=== PATIENT | male | born 1935 | race Caucasian/White ===

== ENCOUNTER 2018-02-01 05:52 | Emergency (ER) | payer MEDICARE, BC ==
[~2018-02-01] VITALS: Ht 180.3 cm; Wt 97.5 kg
[~2018-02-01 05:52] MED LIST: ALPR.5; ASPI325EC PO; ATOR10; ATOR20 PO; CIPR500 PO; GLUCHON; HYDACE5 PO; MAGGLU250; MELO7.5; MELO7.5 PO; MULVITA PO; MULVITSO; OMEGA KRILL OIL PO; POTASSIUM GLUCONATE PO; PROACE100 PO; PROM25 PO; TAMS.4ER; UBID10 PO; VITAMIN D PO
[2018-02-01] MEDS ORDERED: TAMS.4ER PO (07:25)
== END 2018-02-01 07:43 | disposition home or self-care (01) ==
LOC: ER 05:52
DX: S51.012A Laceration without foreign body of left elbow, initial encounter (principal); Z88.8 Allergy status to other drugs, medicaments and biological substances; Z79.899 Other long term (current) drug therapy; Z79.82 Long term (current) use of aspirin; W19.XXXA Unspecified fall, initial encounter
CPT/HCPCS: 99282

== ENCOUNTER 2023-01-22 10:10 | Emergency (ER) | payer MEDICARE, BC ==
[~2023-01-22] VITALS: Ht 175.3 cm; Wt 87.1 kg
[~2023-01-22 10:10] MED LIST changes: +Colace100 MG PO; +TAMS.4ER PO
[2023-01-22 10:18] VITALS: BP 131/109
== END 2023-01-22 12:08 | disposition home or self-care (01) ==
LOC: ER 10:10
DX: S51.012A Laceration without foreign body of left elbow, initial encounter (principal); S80.11XA Contusion of right lower leg, initial encounter; Z88.8 Allergy status to other drugs, medicaments and biological substances; Z91.048 Other nonmedicinal substance allergy status; Z79.899 Other long term (current) drug therapy; Z79.82 Long term (current) use of aspirin; W18.30XA Fall on same level, unspecified, initial encounter; Y92.009 Unspecified place in unspecified non-institutional (private) residence as the place of occurrence of the external cause
CPT/HCPCS: 99282

== ENCOUNTER 2023-01-25 03:23 | Day surgery (SDC) | payer MEDICARE, BC | END 2023-01-25 22:37 | disposition home or self-care (01) | LOC: WOUND 03:23 | DX: S81.802A Unspecified open wound, left lower leg, initial encounter (principal); S81.812A Laceration without foreign body, left lower leg, initial encounter; W19.XXXA Unspecified fall, initial encounter; S51.812A Laceration without foreign body of left forearm, initial encounter; X58.XXXA Exposure to other specified factors, initial encounter; I87.313 Chronic venous hypertension (idiopathic) with ulcer of bilateral lower extremity; L97.829 Non-pressure chronic ulcer of other part of left lower leg with unspecified severity; L97.819 Non-pressure chronic ulcer of other part of right lower leg with unspecified severity; I87.2 Venous insufficiency (chronic) (peripheral); I48.91 Unspecified atrial fibrillation | CPT/HCPCS: A9270; G0463 ==

== ENCOUNTER 2023-01-28 08:49 | Day surgery (SDC) | payer MEDICARE, BC | END 2023-01-28 22:34 | disposition home or self-care (01) | LOC: WOUND 08:49 | DX: I87.313 Chronic venous hypertension (idiopathic) with ulcer of bilateral lower extremity (principal); L97.829 Non-pressure chronic ulcer of other part of left lower leg with unspecified severity; L97.819 Non-pressure chronic ulcer of other part of right lower leg with unspecified severity; S81.822S Laceration with foreign body, left lower leg, sequela; W19.XXXS Unspecified fall, sequela; S51.812S Laceration without foreign body of left forearm, sequela; X58.XXXS Exposure to other specified factors, sequela; I87.2 Venous insufficiency (chronic) (peripheral); I48.91 Unspecified atrial fibrillation | CPT/HCPCS: G0463 ==

== ENCOUNTER 2023-01-30 03:00 | Day surgery (SDC) | payer MEDICARE, BC | END 2023-01-30 22:37 | disposition home or self-care (01) | LOC: WOUND 03:00 | DX: Z48.00 Encounter for change or removal of nonsurgical wound dressing (principal) | CPT/HCPCS: A9270; G0463 ==

== ENCOUNTER 2023-02-01 01:54 | Day surgery (SDC) | payer MEDICARE, BC ==
[2023-02-01] MEDS ORDERED: Cleocin HCl300 MG PO (15:33)
== END 2023-02-01 22:56 | disposition home or self-care (01) ==
LOC: WOUND 01:54
DX: I87.311 Chronic venous hypertension (idiopathic) with ulcer of right lower extremity (principal); I87.312 Chronic venous hypertension (idiopathic) with ulcer of left lower extremity; L97.829 Non-pressure chronic ulcer of other part of left lower leg with unspecified severity; L97.819 Non-pressure chronic ulcer of other part of right lower leg with unspecified severity; S81.822S Laceration with foreign body, left lower leg, sequela
CPT/HCPCS: G0463

== ENCOUNTER 2023-02-04 02:01 | Day surgery (SDC) | payer MEDICARE, BC ==
[~2023-02-04 02:01] MED LIST changes: +Cleocin HCl300 MG PO
== END 2023-02-04 22:48 | disposition home or self-care (01) ==
LOC: WOUND 02:01
DX: L03.115 Cellulitis of right lower limb (principal); I87.313 Chronic venous hypertension (idiopathic) with ulcer of bilateral lower extremity; L97.812 Non-pressure chronic ulcer of other part of right lower leg with fat layer exposed; S81.812A Laceration without foreign body, left lower leg, initial encounter; L97.829 Non-pressure chronic ulcer of other part of left lower leg with unspecified severity; L97.819 Non-pressure chronic ulcer of other part of right lower leg with unspecified severity; I87.2 Venous insufficiency (chronic) (peripheral); X58.XXXA Exposure to other specified factors, initial encounter
CPT/HCPCS: A9270

== ENCOUNTER 2023-02-06 05:44 | Day surgery (SDC) | payer MEDICARE, BC | END 2023-02-06 22:56 | disposition home or self-care (01) | LOC: WOUND 05:44 | DX: I87.313 Chronic venous hypertension (idiopathic) with ulcer of bilateral lower extremity (principal); L97.829 Non-pressure chronic ulcer of other part of left lower leg with unspecified severity; L97.819 Non-pressure chronic ulcer of other part of right lower leg with unspecified severity; S81.822S Laceration with foreign body, left lower leg, sequela; S51.812S Laceration without foreign body of left forearm, sequela; I87.2 Venous insufficiency (chronic) (peripheral); X58.XXXS Exposure to other specified factors, sequela | CPT/HCPCS: A9270; G0463 ==

== ENCOUNTER 2023-02-08 00:27 | Day surgery (SDC) | payer MEDICARE, BC | END 2023-02-09 22:40 | disposition home or self-care (01) | LOC: WOUND 00:27 | DX: I87.313 Chronic venous hypertension (idiopathic) with ulcer of bilateral lower extremity (principal); L97.812 Non-pressure chronic ulcer of other part of right lower leg with fat layer exposed; L97.829 Non-pressure chronic ulcer of other part of left lower leg with unspecified severity; S81.822S Laceration with foreign body, left lower leg, sequela; S51.812S Laceration without foreign body of left forearm, sequela; I87.2 Venous insufficiency (chronic) (peripheral); X58.XXXS Exposure to other specified factors, sequela | CPT/HCPCS: A9270; G0463 ==

== ENCOUNTER 2023-02-11 09:20 | Day surgery (SDC) | payer MEDICARE, BC | END 2023-02-11 22:47 | disposition home or self-care (01) | LOC: WOUND 09:20 | DX: I87.311 Chronic venous hypertension (idiopathic) with ulcer of right lower extremity (principal); L02.415 Cutaneous abscess of right lower limb; I87.2 Venous insufficiency (chronic) (peripheral); L97.812 Non-pressure chronic ulcer of other part of right lower leg with fat layer exposed; L03.115 Cellulitis of right lower limb; I48.91 Unspecified atrial fibrillation ==

== ENCOUNTER 2023-02-13 00:26 | Day surgery (SDC) | payer MEDICARE, BC | END 2023-02-13 22:49 | disposition home or self-care (01) | LOC: WOUND 00:26 | DX: I87.313 Chronic venous hypertension (idiopathic) with ulcer of bilateral lower extremity (principal); L97.829 Non-pressure chronic ulcer of other part of left lower leg with unspecified severity; L97.819 Non-pressure chronic ulcer of other part of right lower leg with unspecified severity; S81.822S Laceration with foreign body, left lower leg, sequela; S51.812S Laceration without foreign body of left forearm, sequela; I87.2 Venous insufficiency (chronic) (peripheral) | CPT/HCPCS: A9270; G0463 ==

== ENCOUNTER 2023-02-15 01:04 | Day surgery (SDC) | payer MEDICARE, BC | END 2023-02-17 22:38 | disposition home or self-care (01) | LOC: WOUND 01:04 | DX: I87.313 Chronic venous hypertension (idiopathic) with ulcer of bilateral lower extremity (principal); L97.829 Non-pressure chronic ulcer of other part of left lower leg with unspecified severity; L97.819 Non-pressure chronic ulcer of other part of right lower leg with unspecified severity; S81.822S Laceration with foreign body, left lower leg, sequela; S51.812S Laceration without foreign body of left forearm, sequela; X58.XXXS Exposure to other specified factors, sequela; I87.2 Venous insufficiency (chronic) (peripheral) | CPT/HCPCS: A9270; G0463 ==

== ENCOUNTER 2023-02-18 01:22 | Day surgery (SDC) | payer MEDICARE, BC | END 2023-02-18 22:47 | disposition home or self-care (01) | LOC: WOUND 01:22 | DX: L03.115 Cellulitis of right lower limb (principal); I87.311 Chronic venous hypertension (idiopathic) with ulcer of right lower extremity; I87.312 Chronic venous hypertension (idiopathic) with ulcer of left lower extremity; L97.812 Non-pressure chronic ulcer of other part of right lower leg with fat layer exposed; S81.822D Laceration with foreign body, left lower leg, subsequent encounter; L97.829 Non-pressure chronic ulcer of other part of left lower leg with unspecified severity; L97.819 Non-pressure chronic ulcer of other part of right lower leg with unspecified severity; S51.812D Laceration without foreign body of left forearm, subsequent encounter; I87.2 Venous insufficiency (chronic) (peripheral); X58.XXXD Exposure to other specified factors, subsequent encounter | CPT/HCPCS: A9270 ==

== ENCOUNTER 2023-02-20 00:44 | Day surgery (SDC) | payer MEDICARE, BC | END 2023-02-20 22:39 | disposition home or self-care (01) | LOC: WOUND 00:44 | DX: I87.313 Chronic venous hypertension (idiopathic) with ulcer of bilateral lower extremity (principal); L97.829 Non-pressure chronic ulcer of other part of left lower leg with unspecified severity; L97.819 Non-pressure chronic ulcer of other part of right lower leg with unspecified severity; S81.822D Laceration with foreign body, left lower leg, subsequent encounter; S51.812D Laceration without foreign body of left forearm, subsequent encounter; I87.2 Venous insufficiency (chronic) (peripheral); X58.XXXD Exposure to other specified factors, subsequent encounter | CPT/HCPCS: G0463 ==

== ENCOUNTER 2023-02-27 03:49 | Day surgery (SDC) | payer MEDICARE, BC | END 2023-02-27 22:50 | disposition home or self-care (01) | LOC: WOUND 03:49 | DX: I87.313 Chronic venous hypertension (idiopathic) with ulcer of bilateral lower extremity (principal); L97.819 Non-pressure chronic ulcer of other part of right lower leg with unspecified severity; S81.822S Laceration with foreign body, left lower leg, sequela; S51.812S Laceration without foreign body of left forearm, sequela; X58.XXXS Exposure to other specified factors, sequela; I87.2 Venous insufficiency (chronic) (peripheral) | CPT/HCPCS: A9270; G0463 ==

== ENCOUNTER 2023-03-04 03:45 | Day surgery (SDC) | payer MEDICARE, BC | END 2023-03-04 22:50 | disposition home or self-care (01) | LOC: WOUND 03:45 | DX: I87.313 Chronic venous hypertension (idiopathic) with ulcer of bilateral lower extremity (principal); L97.829 Non-pressure chronic ulcer of other part of left lower leg with unspecified severity; L97.819 Non-pressure chronic ulcer of other part of right lower leg with unspecified severity; S81.822S Laceration with foreign body, left lower leg, sequela; S81.812S Laceration without foreign body, left lower leg, sequela; I87.2 Venous insufficiency (chronic) (peripheral) | CPT/HCPCS: G0463 ==

== ENCOUNTER 2023-03-06 03:10 | Day surgery (SDC) | payer MEDICARE, BC | END 2023-03-06 22:44 | disposition home or self-care (01) | LOC: WOUND 03:10 | DX: L03.115 Cellulitis of right lower limb (principal); I87.2 Venous insufficiency (chronic) (peripheral); L97.812 Non-pressure chronic ulcer of other part of right lower leg with fat layer exposed; L02.415 Cutaneous abscess of right lower limb; I48.91 Unspecified atrial fibrillation; I87.313 Chronic venous hypertension (idiopathic) with ulcer of bilateral lower extremity; L97.829 Non-pressure chronic ulcer of other part of left lower leg with unspecified severity; S81.822S Laceration with foreign body, left lower leg, sequela; S51.812S Laceration without foreign body of left forearm, sequela | CPT/HCPCS: A9270; G0463 ==

== ENCOUNTER 2023-03-08 03:20 | Day surgery (SDC) | payer MEDICARE, BC | END 2023-03-08 22:50 | disposition home or self-care (01) | LOC: WOUND 03:20 | DX: I87.313 Chronic venous hypertension (idiopathic) with ulcer of bilateral lower extremity (principal); L97.819 Non-pressure chronic ulcer of other part of right lower leg with unspecified severity; L97.829 Non-pressure chronic ulcer of other part of left lower leg with unspecified severity; S81.822S Laceration with foreign body, left lower leg, sequela; S51.812S Laceration without foreign body of left forearm, sequela; I87.2 Venous insufficiency (chronic) (peripheral) | CPT/HCPCS: G0463 ==

== ENCOUNTER 2023-03-11 03:10 | Day surgery (SDC) | payer MEDICARE, BC | END 2023-03-11 23:00 | disposition home or self-care (01) | LOC: WOUND 03:10 | DX: L03.115 Cellulitis of right lower limb (principal); I87.311 Chronic venous hypertension (idiopathic) with ulcer of right lower extremity; I87.312 Chronic venous hypertension (idiopathic) with ulcer of left lower extremity; L97.812 Non-pressure chronic ulcer of other part of right lower leg with fat layer exposed; L97.829 Non-pressure chronic ulcer of other part of left lower leg with unspecified severity; L97.819 Non-pressure chronic ulcer of other part of right lower leg with unspecified severity; S81.822D Laceration with foreign body, left lower leg, subsequent encounter; S51.812D Laceration without foreign body of left forearm, subsequent encounter; I87.2 Venous insufficiency (chronic) (peripheral); X58.XXXD Exposure to other specified factors, subsequent encounter | CPT/HCPCS: A9270; G0463 ==

== ENCOUNTER 2023-03-13 03:07 | Day surgery (SDC) | payer MEDICARE, BC | END 2023-03-13 22:50 | disposition home or self-care (01) | LOC: WOUND 03:07 | DX: I87.313 Chronic venous hypertension (idiopathic) with ulcer of bilateral lower extremity (principal); L97.829 Non-pressure chronic ulcer of other part of left lower leg with unspecified severity; L97.819 Non-pressure chronic ulcer of other part of right lower leg with unspecified severity; S81.822S Laceration with foreign body, left lower leg, sequela; S51.812S Laceration without foreign body of left forearm, sequela; I87.2 Venous insufficiency (chronic) (peripheral) | CPT/HCPCS: G0463 ==

== ENCOUNTER 2023-03-15 01:05 | Day surgery (SDC) | payer MEDICARE, BC | END 2023-03-15 22:50 | disposition home or self-care (01) | LOC: WOUND 01:05 | DX: I87.313 Chronic venous hypertension (idiopathic) with ulcer of bilateral lower extremity (principal); L97.829 Non-pressure chronic ulcer of other part of left lower leg with unspecified severity; L97.819 Non-pressure chronic ulcer of other part of right lower leg with unspecified severity; I87.2 Venous insufficiency (chronic) (peripheral) | CPT/HCPCS: G0463 ==

== ENCOUNTER 2023-03-20 02:38 | Day surgery (SDC) | payer MEDICARE, BC | END 2023-03-20 22:43 | disposition home or self-care (01) | LOC: WOUND 02:38 | DX: L03.115 Cellulitis of right lower limb (principal); I87.313 Chronic venous hypertension (idiopathic) with ulcer of bilateral lower extremity; L97.812 Non-pressure chronic ulcer of other part of right lower leg with fat layer exposed; L97.829 Non-pressure chronic ulcer of other part of left lower leg with unspecified severity; L97.819 Non-pressure chronic ulcer of other part of right lower leg with unspecified severity; I87.2 Venous insufficiency (chronic) (peripheral) | CPT/HCPCS: G0463 ==

== ENCOUNTER 2023-04-03 04:26 | Day surgery (SDC) | payer MEDICARE, BC | END 2023-04-03 22:41 | disposition home or self-care (01) | LOC: WOUND 04:26 | DX: I87.313 Chronic venous hypertension (idiopathic) with ulcer of bilateral lower extremity (principal); L97.829 Non-pressure chronic ulcer of other part of left lower leg with unspecified severity; L97.819 Non-pressure chronic ulcer of other part of right lower leg with unspecified severity; S81.822D Laceration with foreign body, left lower leg, subsequent encounter; S81.812D Laceration without foreign body, left lower leg, subsequent encounter; I87.2 Venous insufficiency (chronic) (peripheral); X58.XXXD Exposure to other specified factors, subsequent encounter | CPT/HCPCS: G0463 ==

== ENCOUNTER 2023-04-05 00:55 | Day surgery (SDC) | payer MEDICARE, BC | END 2023-04-05 22:37 | disposition home or self-care (01) | LOC: WOUND 00:55 | DX: I87.313 Chronic venous hypertension (idiopathic) with ulcer of bilateral lower extremity (principal); L97.829 Non-pressure chronic ulcer of other part of left lower leg with unspecified severity; L97.819 Non-pressure chronic ulcer of other part of right lower leg with unspecified severity; S81.822S Laceration with foreign body, left lower leg, sequela; S51.812S Laceration without foreign body of left forearm, sequela; I87.2 Venous insufficiency (chronic) (peripheral) | CPT/HCPCS: G0463 ==

== ENCOUNTER 2023-04-08 00:41 | Day surgery (SDC) | payer MEDICARE, BC | END 2023-04-08 22:46 | disposition home or self-care (01) | LOC: WOUND 00:41 | DX: I87.312 Chronic venous hypertension (idiopathic) with ulcer of left lower extremity (principal); L97.829 Non-pressure chronic ulcer of other part of left lower leg with unspecified severity; S81.822S Laceration with foreign body, left lower leg, sequela; S51.812S Laceration without foreign body of left forearm, sequela; I87.2 Venous insufficiency (chronic) (peripheral) | CPT/HCPCS: G0463 ==

== ENCOUNTER 2023-04-24 01:14 | Day surgery (SDC) | payer MEDICARE, BC | END 2023-04-24 23:11 | disposition home or self-care (01) | LOC: WOUND 01:14 | DX: I87.311 Chronic venous hypertension (idiopathic) with ulcer of right lower extremity (principal) | CPT/HCPCS: G0463 ==

== ENCOUNTER 2023-04-26 03:03 | Day surgery (SDC) | payer MEDICARE, BC | END 2023-04-26 22:44 | disposition home or self-care (01) | LOC: WOUND 03:03 | DX: I87.311 Chronic venous hypertension (idiopathic) with ulcer of right lower extremity (principal) | CPT/HCPCS: G0463 ==

== ENCOUNTER 2023-04-29 02:13 | Day surgery (SDC) | payer MEDICARE, BC | END 2023-04-29 22:47 | disposition home or self-care (01) | LOC: WOUND 02:13 | DX: I87.311 Chronic venous hypertension (idiopathic) with ulcer of right lower extremity (principal); L97.812 Non-pressure chronic ulcer of other part of right lower leg with fat layer exposed; I87.2 Venous insufficiency (chronic) (peripheral); I48.91 Unspecified atrial fibrillation | CPT/HCPCS: A9270; G0463 ==

== ENCOUNTER 2023-05-01 01:54 | Day surgery (SDC) | payer MEDICARE, BC | END 2023-05-01 22:36 | disposition home or self-care (01) | LOC: WOUND 01:54 | DX: I87.311 Chronic venous hypertension (idiopathic) with ulcer of right lower extremity (principal); I87.2 Venous insufficiency (chronic) (peripheral) | CPT/HCPCS: G0463 ==

== ENCOUNTER 2023-05-03 01:28 | Day surgery (SDC) | payer MEDICARE, BC | END 2023-05-03 22:54 | disposition home or self-care (01) | LOC: WOUND 01:28 | DX: I87.311 Chronic venous hypertension (idiopathic) with ulcer of right lower extremity (principal); I87.2 Venous insufficiency (chronic) (peripheral) | CPT/HCPCS: G0463 ==

== ENCOUNTER 2023-05-06 01:58 | Day surgery (SDC) | payer MEDICARE, BC | END 2023-05-06 22:37 | disposition home or self-care (01) | LOC: WOUND 01:58 | DX: I87.311 Chronic venous hypertension (idiopathic) with ulcer of right lower extremity (principal); I87.2 Venous insufficiency (chronic) (peripheral) | CPT/HCPCS: G0463 ==

== ENCOUNTER 2023-05-09 08:00 | Day surgery (SDC) | payer MEDICARE, BC | END 2023-05-09 23:59 | disposition home or self-care (01) | LOC: WOUND 08:00 | DX: I87.311 Chronic venous hypertension (idiopathic) with ulcer of right lower extremity (principal) | CPT/HCPCS: G0463 ==

== ENCOUNTER 2023-05-20 08:00 | Day surgery (SDC) | payer MEDICARE, BC | END 2023-05-20 23:59 | disposition home or self-care (01) | LOC: WOUND 08:00 | DX: I87.311 Chronic venous hypertension (idiopathic) with ulcer of right lower extremity (principal); S51.801A Unspecified open wound of right forearm, initial encounter; L97.922 Non-pressure chronic ulcer of unspecified part of left lower leg with fat layer exposed; I48.91 Unspecified atrial fibrillation; X58.XXXA Exposure to other specified factors, initial encounter ==

== ENCOUNTER 2023-05-27 01:32 | Day surgery (SDC) | payer MEDICARE, BC | END 2023-05-27 22:51 | disposition home or self-care (01) | LOC: WOUND 01:32 | DX: I87.311 Chronic venous hypertension (idiopathic) with ulcer of right lower extremity (principal); L97.812 Non-pressure chronic ulcer of other part of right lower leg with fat layer exposed; S41.111D Laceration without foreign body of right upper arm, subsequent encounter; X58.XXXD Exposure to other specified factors, subsequent encounter; I87.2 Venous insufficiency (chronic) (peripheral) | CPT/HCPCS: G0463 ==

== ENCOUNTER 2023-06-10 01:10 | Day surgery (SDC) | payer MEDICARE, BC | END 2023-06-10 22:46 | disposition home or self-care (01) | LOC: WOUND 01:10 | DX: S80.212A Abrasion, left knee, initial encounter (principal); S80.811A Abrasion, right lower leg, initial encounter; X58.XXXA Exposure to other specified factors, initial encounter; I87.2 Venous insufficiency (chronic) (peripheral); I87.311 Chronic venous hypertension (idiopathic) with ulcer of right lower extremity; I48.91 Unspecified atrial fibrillation | CPT/HCPCS: A9270; G0463 ==

== ENCOUNTER 2023-06-14 00:50 | Day surgery (SDC) | payer MEDICARE, BC | END 2023-06-14 23:10 | disposition home or self-care (01) | LOC: WOUND 00:50 | DX: I87.311 Chronic venous hypertension (idiopathic) with ulcer of right lower extremity (principal); L97.212 Non-pressure chronic ulcer of right calf with fat layer exposed; L97.222 Non-pressure chronic ulcer of left calf with fat layer exposed | CPT/HCPCS: G0463 ==

== ENCOUNTER 2023-06-17 01:58 | Day surgery (SDC) | payer MEDICARE, BC | END 2023-06-17 22:56 | disposition home or self-care (01) | LOC: WOUND 01:58 | DX: S80.212D Abrasion, left knee, subsequent encounter (principal); I48.91 Unspecified atrial fibrillation | CPT/HCPCS: G0463 ==

== ENCOUNTER 2023-06-19 04:45 | Day surgery (SDC) | payer MEDICARE, BC | END 2023-06-19 22:44 | disposition home or self-care (01) | LOC: WOUND 04:45 | DX: I87.311 Chronic venous hypertension (idiopathic) with ulcer of right lower extremity (principal); I87.2 Venous insufficiency (chronic) (peripheral); S41.111D Laceration without foreign body of right upper arm, subsequent encounter | CPT/HCPCS: G0463 ==

== ENCOUNTER 2023-06-21 03:17 | Day surgery (SDC) | payer MEDICARE, BC | END 2023-06-21 22:36 | disposition home or self-care (01) | LOC: WOUND 03:17 | DX: I87.311 Chronic venous hypertension (idiopathic) with ulcer of right lower extremity (principal); I87.2 Venous insufficiency (chronic) (peripheral); S41.111D Laceration without foreign body of right upper arm, subsequent encounter | CPT/HCPCS: G0463 ==

== ENCOUNTER 2023-07-03 02:25 | Day surgery (SDC) | payer MEDICARE, BC | END 2023-07-03 23:36 | disposition home or self-care (01) | LOC: WOUND 02:25 | DX: I87.311 Chronic venous hypertension (idiopathic) with ulcer of right lower extremity (principal); S41.111D Laceration without foreign body of right upper arm, subsequent encounter; X58.XXXD Exposure to other specified factors, subsequent encounter | CPT/HCPCS: G0463 ==

== ENCOUNTER 2023-07-05 00:33 | Day surgery (SDC) | payer MEDICARE, BC | END 2023-07-05 22:45 | disposition home or self-care (01) | LOC: WOUND 00:33 | DX: I87.311 Chronic venous hypertension (idiopathic) with ulcer of right lower extremity (principal); I87.2 Venous insufficiency (chronic) (peripheral); S41.111D Laceration without foreign body of right upper arm, subsequent encounter | CPT/HCPCS: G0463 ==

== ENCOUNTER 2023-07-08 00:54 | Day surgery (SDC) | payer MEDICARE, BC | END 2023-07-08 23:07 | disposition home or self-care (01) | LOC: WOUND 00:54 | DX: I87.311 Chronic venous hypertension (idiopathic) with ulcer of right lower extremity (principal); S41.111D Laceration without foreign body of right upper arm, subsequent encounter; X58.XXXD Exposure to other specified factors, subsequent encounter | CPT/HCPCS: G0463 ==

== ENCOUNTER 2023-07-11 01:31 | Day surgery (SDC) | payer MEDICARE, BC | END 2023-07-11 23:30 | disposition home or self-care (01) | LOC: WOUND 01:31 | DX: I87.311 Chronic venous hypertension (idiopathic) with ulcer of right lower extremity (principal); L97.812 Non-pressure chronic ulcer of other part of right lower leg with fat layer exposed; L89.890 Pressure ulcer of other site, unstageable; S81.812A Laceration without foreign body, left lower leg, initial encounter; S51.812A Laceration without foreign body of left forearm, initial encounter; S41.111A Laceration without foreign body of right upper arm, initial encounter; S91.301A Unspecified open wound, right foot, initial encounter; W19.XXXA Unspecified fall, initial encounter; W22.8XXA Striking against or struck by other objects, initial encounter; I87.2 Venous insufficiency (chronic) (peripheral); I48.91 Unspecified atrial fibrillation | CPT/HCPCS: A9270; G0463 ==

== ENCOUNTER 2023-07-15 01:58 | Day surgery (SDC) | payer MEDICARE, BC | END 2023-07-15 22:49 | disposition home or self-care (01) | LOC: WOUND 01:58 | DX: I87.311 Chronic venous hypertension (idiopathic) with ulcer of right lower extremity (principal); S51.802D Unspecified open wound of left forearm, subsequent encounter; L89.893 Pressure ulcer of other site, stage 3; S81.002D Unspecified open wound, left knee, subsequent encounter; X58.XXXD Exposure to other specified factors, subsequent encounter | CPT/HCPCS: 73630 ==

== ENCOUNTER 2023-07-17 05:13 | Day surgery (SDC) | payer MEDICARE, BC | END 2023-07-17 22:48 | disposition home or self-care (01) | LOC: WOUND 05:13 | DX: I87.311 Chronic venous hypertension (idiopathic) with ulcer of right lower extremity (principal); S41.111D Laceration without foreign body of right upper arm, subsequent encounter; S91.301D Unspecified open wound, right foot, subsequent encounter; X58.XXXD Exposure to other specified factors, subsequent encounter | CPT/HCPCS: G0463 ==

== ENCOUNTER 2023-07-19 05:07 | Day surgery (SDC) | payer MEDICARE, BC | END 2023-07-19 22:38 | disposition home or self-care (01) | LOC: WOUND 05:07 | DX: I87.311 Chronic venous hypertension (idiopathic) with ulcer of right lower extremity (principal); I87.2 Venous insufficiency (chronic) (peripheral); L02.611 Cutaneous abscess of right foot; S41.111A Laceration without foreign body of right upper arm, initial encounter; S80.212S Abrasion, left knee, sequela; S91.301A Unspecified open wound, right foot, initial encounter | CPT/HCPCS: G0463 ==

== ENCOUNTER 2023-07-22 02:56 | Day surgery (SDC) | payer MEDICARE, BC | END 2023-07-23 22:55 | disposition home or self-care (01) | LOC: WOUND 02:56 | DX: S81.002A Unspecified open wound, left knee, initial encounter (principal); W19.XXXA Unspecified fall, initial encounter; L89.893 Pressure ulcer of other site, stage 3; I87.311 Chronic venous hypertension (idiopathic) with ulcer of right lower extremity; S41.111A Laceration without foreign body of right upper arm, initial encounter; S91.301A Unspecified open wound, right foot, initial encounter; W22.8XXA Striking against or struck by other objects, initial encounter; I87.2 Venous insufficiency (chronic) (peripheral); I48.91 Unspecified atrial fibrillation | CPT/HCPCS: G0463 ==

== ENCOUNTER 2023-07-24 02:27 | Day surgery (SDC) | payer MEDICARE, BC | END 2023-07-24 22:43 | disposition home or self-care (01) | LOC: WOUND 02:27 | DX: I87.311 Chronic venous hypertension (idiopathic) with ulcer of right lower extremity (principal); S41.111D Laceration without foreign body of right upper arm, subsequent encounter; X58.XXXD Exposure to other specified factors, subsequent encounter | CPT/HCPCS: G0463 ==

== ENCOUNTER 2023-07-26 03:06 | Day surgery (SDC) | payer MEDICARE, BC | END 2023-07-26 23:02 | disposition home or self-care (01) | LOC: WOUND 03:06 | DX: I87.311 Chronic venous hypertension (idiopathic) with ulcer of right lower extremity (principal); I87.2 Venous insufficiency (chronic) (peripheral); S41.111D Laceration without foreign body of right upper arm, subsequent encounter; S91.301D Unspecified open wound, right foot, subsequent encounter | CPT/HCPCS: 87070; 87075; 87077; 87205; G0463 ==

== ENCOUNTER 2023-07-29 02:17 | Day surgery (SDC) | payer MEDICARE, BC | END 2023-07-29 22:43 | disposition home or self-care (01) | LOC: WOUND 02:17 | DX: I87.311 Chronic venous hypertension (idiopathic) with ulcer of right lower extremity (principal); L89.893 Pressure ulcer of other site, stage 3; I48.91 Unspecified atrial fibrillation ==

== ENCOUNTER 2023-07-31 04:48 | Day surgery (SDC) | payer MEDICARE, BC | END 2023-07-31 23:12 | disposition home or self-care (01) | LOC: WOUND 04:48 | DX: I87.311 Chronic venous hypertension (idiopathic) with ulcer of right lower extremity (principal); S41.111A Laceration without foreign body of right upper arm, initial encounter; S91.301A Unspecified open wound, right foot, initial encounter; X58.XXXA Exposure to other specified factors, initial encounter; I87.1 Compression of vein | CPT/HCPCS: G0463 ==

== ENCOUNTER 2023-08-02 05:08 | Day surgery (SDC) | payer MEDICARE, BC | END 2023-08-02 22:49 | disposition home or self-care (01) | LOC: WOUND 05:08 | DX: I87.311 Chronic venous hypertension (idiopathic) with ulcer of right lower extremity (principal); I87.2 Venous insufficiency (chronic) (peripheral); S41.111D Laceration without foreign body of right upper arm, subsequent encounter; S91.301D Unspecified open wound, right foot, subsequent encounter | CPT/HCPCS: G0463 ==

== ENCOUNTER 2023-08-05 02:35 | Day surgery (SDC) | payer MEDICARE, BC | END 2023-08-05 22:39 | disposition home or self-care (01) | LOC: WOUND 02:35 | DX: I87.311 Chronic venous hypertension (idiopathic) with ulcer of right lower extremity (principal); I87.2 Venous insufficiency (chronic) (peripheral); S41.111D Laceration without foreign body of right upper arm, subsequent encounter; S91.301D Unspecified open wound, right foot, subsequent encounter | CPT/HCPCS: G0463 ==

== ENCOUNTER 2023-08-07 02:02 | Day surgery (SDC) | payer MEDICARE, BC | END 2023-08-07 22:48 | disposition home or self-care (01) | LOC: WOUND 02:02 | DX: I87.311 Chronic venous hypertension (idiopathic) with ulcer of right lower extremity (principal); S41.111D Laceration without foreign body of right upper arm, subsequent encounter; X58.XXXD Exposure to other specified factors, subsequent encounter | CPT/HCPCS: G0463 ==

== ENCOUNTER 2023-08-09 01:56 | Day surgery (SDC) | payer MEDICARE, BC | END 2023-08-09 22:45 | disposition home or self-care (01) | LOC: WOUND 01:56 | DX: I87.311 Chronic venous hypertension (idiopathic) with ulcer of right lower extremity (principal); S41.111D Laceration without foreign body of right upper arm, subsequent encounter; X58.XXXD Exposure to other specified factors, subsequent encounter | CPT/HCPCS: G0463 ==

== ENCOUNTER 2023-08-12 00:47 | Day surgery (SDC) | payer MEDICARE, BC | END 2023-08-12 22:43 | disposition home or self-care (01) | LOC: WOUND 00:47 | DX: L89.893 Pressure ulcer of other site, stage 3 (principal); I87.311 Chronic venous hypertension (idiopathic) with ulcer of right lower extremity; I87.2 Venous insufficiency (chronic) (peripheral); S41.111A Laceration without foreign body of right upper arm, initial encounter; S91.301A Unspecified open wound, right foot, initial encounter; X58.XXXA Exposure to other specified factors, initial encounter | CPT/HCPCS: A9270; G0463 ==

== ENCOUNTER 2023-08-14 06:14 | Day surgery (SDC) | payer MEDICARE, BC | END 2023-08-14 22:55 | disposition home or self-care (01) | LOC: WOUND 06:14 | DX: I87.311 Chronic venous hypertension (idiopathic) with ulcer of right lower extremity (principal); S41.111D Laceration without foreign body of right upper arm, subsequent encounter; X58.XXXD Exposure to other specified factors, subsequent encounter | CPT/HCPCS: G0463 ==

== ENCOUNTER 2023-08-16 02:34 | Day surgery (SDC) | payer MEDICARE, BC | END 2023-08-16 22:35 | disposition home or self-care (01) | LOC: WOUND 02:34 | DX: L89.893 Pressure ulcer of other site, stage 3 (principal) | CPT/HCPCS: G0463 ==

== ENCOUNTER 2023-08-19 02:53 | Day surgery (SDC) | payer MEDICARE, BC | END 2023-08-19 22:55 | disposition home or self-care (01) | LOC: WOUND 02:53 | DX: I87.311 Chronic venous hypertension (idiopathic) with ulcer of right lower extremity (principal); L89.893 Pressure ulcer of other site, stage 3; I48.91 Unspecified atrial fibrillation; I87.2 Venous insufficiency (chronic) (peripheral); S41.111D Laceration without foreign body of right upper arm, subsequent encounter | CPT/HCPCS: G0463 ==

== ENCOUNTER 2023-08-26 03:05 | Day surgery (SDC) | payer MEDICARE, BC | END 2023-08-26 22:55 | disposition home or self-care (01) | LOC: WOUND 03:05 | DX: I87.311 Chronic venous hypertension (idiopathic) with ulcer of right lower extremity (principal); S41.111D Laceration without foreign body of right upper arm, subsequent encounter; I48.91 Unspecified atrial fibrillation; L89.893 Pressure ulcer of other site, stage 3; X58.XXXD Exposure to other specified factors, subsequent encounter | CPT/HCPCS: G0463 ==

== ENCOUNTER 2023-08-28 01:56 | Day surgery (SDC) | payer MEDICARE, BC | END 2023-08-28 22:34 | disposition home or self-care (01) | LOC: WOUND 01:56 | DX: I87.311 Chronic venous hypertension (idiopathic) with ulcer of right lower extremity (principal); I87.2 Venous insufficiency (chronic) (peripheral); S41.111D Laceration without foreign body of right upper arm, subsequent encounter; S91.301D Unspecified open wound, right foot, subsequent encounter | CPT/HCPCS: G0463 ==

== ENCOUNTER 2023-08-30 03:54 | Day surgery (SDC) | payer MEDICARE, BC | END 2023-08-30 22:48 | disposition home or self-care (01) | LOC: WOUND 03:54 | DX: L89.894 Pressure ulcer of other site, stage 4 (principal); I87.2 Venous insufficiency (chronic) (peripheral); I87.311 Chronic venous hypertension (idiopathic) with ulcer of right lower extremity; S41.111D Laceration without foreign body of right upper arm, subsequent encounter; S91.301D Unspecified open wound, right foot, subsequent encounter; S92.354D Nondisplaced fracture of fifth metatarsal bone, right foot, subsequent encounter for fracture with routine healing | CPT/HCPCS: 73630; 87070; 87075; 87077; 87186; 87205; A9270; G0463 ==

== ENCOUNTER 2023-09-02 04:15 | Day surgery (SDC) | payer MEDICARE, BC | END 2023-09-02 22:48 | disposition home or self-care (01) | LOC: WOUND 04:15 | DX: L89.894 Pressure ulcer of other site, stage 4 (principal); I48.91 Unspecified atrial fibrillation; I87.2 Venous insufficiency (chronic) (peripheral); I87.311 Chronic venous hypertension (idiopathic) with ulcer of right lower extremity; S41.111D Laceration without foreign body of right upper arm, subsequent encounter; S91.301D Unspecified open wound, right foot, subsequent encounter | CPT/HCPCS: G0463 ==

== ENCOUNTER 2023-09-04 02:10 | Day surgery (SDC) | payer MEDICARE, BC | END 2023-09-04 22:44 | disposition home or self-care (01) | LOC: WOUND 02:10 | DX: I87.311 Chronic venous hypertension (idiopathic) with ulcer of right lower extremity (principal); S41.111D Laceration without foreign body of right upper arm, subsequent encounter; S91.301S Unspecified open wound, right foot, sequela; I87.2 Venous insufficiency (chronic) (peripheral); L97.909 Non-pressure chronic ulcer of unspecified part of unspecified lower leg with unspecified severity | CPT/HCPCS: G0463 ==

== ENCOUNTER 2023-09-06 03:09 | Day surgery (SDC) | payer MEDICARE, BC | END 2023-09-06 23:00 | disposition home or self-care (01) | LOC: WOUND 03:09 | DX: I87.311 Chronic venous hypertension (idiopathic) with ulcer of right lower extremity (principal); I87.2 Venous insufficiency (chronic) (peripheral); S41.111D Laceration without foreign body of right upper arm, subsequent encounter; S91.301D Unspecified open wound, right foot, subsequent encounter | CPT/HCPCS: G0463 ==

== ENCOUNTER 2023-09-09 10:06 | Day surgery (SDC) | payer MEDICARE, BC | END 2023-09-09 22:57 | disposition home or self-care (01) | LOC: WOUND 10:06 | DX: I87.311 Chronic venous hypertension (idiopathic) with ulcer of right lower extremity (principal); S91.301S Unspecified open wound, right foot, sequela; S41.111D Laceration without foreign body of right upper arm, subsequent encounter; X58.XXXD Exposure to other specified factors, subsequent encounter | CPT/HCPCS: G0463 ==

== ENCOUNTER 2023-09-16 13:32 | Day surgery (SDC) | payer MEDICARE, BC ==
[~2023-09-16] VITALS: Ht 177.8 cm; Wt 85.2 kg
[2023-09-16] MEDS ORDERED: HYDROCODONE-AC1 EA19 PO (14:47)
[2023-09-16] MEDS ORDERED: ZANAFLEX413 PO (14:47)
[2023-09-16] MEDS ORDERED: XARELTO20 M1 PO (14:48)
[2023-09-16] MEDS ORDERED: SOAANZ20 M3 PO (14:48)
[2023-09-16] MEDS ORDERED: FAMC500 (14:48)
[2023-09-16] MEDS ORDERED: CATAPRES0.1 MG PO (14:49)
[2023-09-16] MEDS ORDERED: FUROSEMIDE40 MG PO (14:49)
[2023-09-16] MEDS ORDERED: K-TAB ER20 ME1 PO (14:57)
[2023-09-16 15:02] VITALS: BP 108/68
--- NOTE | 2023-09-16 15:02 | NUR ---
09/16/23 1502 Kori Gordon AFTER DISCUSSION WITH DR. DEMARCO AND DR. DARDEN IT WAS DECIDED PT WOULD BE CANCELLED TODAY. HE WILL BE SENT TO THE HOSPITAL. DNR AND HEALTH DIRECTIVES ON FILE. SON AND DAUGHTER IN LAW [place] ON FILE FOR EMERGENCY CONTACT.PT WILL NEED REHAB AFTER PROCEEDURE.
[2023-09-16] MEDS ORDERED: Norco 5-325 Ta1 EACH PO (17:28)
== END 2023-09-16 17:05 | disposition short-term general hospital (02) ==
LOC: ORSCSDS 13:32
DX: M86.9 Osteomyelitis, unspecified (principal); Z53.9 Procedure and treatment not carried out, unspecified reason
CPT/HCPCS: J0690; J2704; J2795; J3010; J7120

== ENCOUNTER 2023-09-16 16:39 | Observation (INO) | payer MEDICARE, BC ==
[~2023-09-16] VITALS: Ht 175.3 cm; Wt 88.0 kg
[~2023-09-16 16:39] MED LIST changes: +CATAPRES0.1 MG PO; +FAMC500; +FUROSEMIDE40 MG PO; +HYDROCODONE-AC1 EA19 PO; +K-TAB ER20 ME1 PO; +SOAANZ20 M3 PO; +XARELTO20 M1 PO; +ZANAFLEX413 PO
[2023-09-16] MEDS ORDERED: Norco 5-325 Ta1 EACH PO (17:28)
--- NOTE | 2023-09-16 18:33 | NUR ---
SHIFT SUMMARY PT A DIRECT ADMIT FROM THE [facility]. ORDERS OBTAINED FROM DR. BILLY. NPO AT MIDNIGHT. WOUND PICTURES TO BE PLACED IN THE CHART. DRESSINGS CHANGED AND CLEANED. PT POTENTIALLY GETTING SURGERY IN THE AM. CALL LIGHT WITHIN REACH, BED IN THE LOWEST POSITION. WILL REPORT TO ONCOMING NURSE.
[2023-09-16 18:54] LABS: International Normalized Ratio 1.12; Prothrombin Time Results 11.7 Sec (9.7-11.5)
[2023-09-16 19:20] VITALS: BP 135/63
[2023-09-17 00:25] LABS: BASOPHILS PERCENT AUTO 1 % (0-2); EOSINOPHILS ABSOLUTE AUTO 0.34 K/mm3 (0.00-0.68); EOSINOPHILS PERCENT AUTO 3 % (0-6); Hematocrit 33.7 % (37.0-53.0); Hemoglobin 10.7 g/dL (13.5-17.5); IMMATURE GRAN ABSOLUTE AUTO 0.07 K/mm3 (0.00-0.10); IMMATURE GRAN PERCENT AUTO 1 % (0-1); LYMPHOCYTES ABSOLUTE AUTO 1.06 K/mm3 (0.84-5.20); LYMPHOCYTES PERCENT AUTO 9 % (21-46); MONOCYTES ABSOLUTE AUTO 1.04 K/mm3 (0.16-1.47); MONOCYTES PERCENT AUTO 8 % (4-13); Mean Corpuscular HGB 27.4 pg (26.0-34.0); Mean Corpuscular HGB Conc 31.8 g/dL (31.5-36.5); Mean Corpuscular Volume 86 fL (80-100); Mean Platelet Volume 9.6 fL (9.1-12.4); NEUTROPHILS PERCENT AUTO 79 % (41-73); Platelet Count 253 K/mm3 (150-400); RDW Coefficient Variation 16.1 % (11.7-14.2); RDW Standard Deviation 50.5 fL (35.1-46.3); Red Blood Cell Count 3.91 M/mm3 (4.30-5.90); White Blood Cell Count 12.31 K/mm3 (4.00-11.30)
[2023-09-17 00:32] LABS: Albumin, Blood 2.2 g/dL (3.4-5.0); Albumin/Globulin Ratio 0.5 (0.8-1.8); Bilirubin, Total 0.6 mg/dL (0.1-1.0); Bun/Creatinine Ratio 18.4 (12.0-20.0); Calcium, Blood 8.8 mg/dL (8.5-10.1); Creatinine, Blood 1.03 mg/dL (0.60-1.20); Globulin, Blood 4.6 g/dL (2.2-4.0); Potassium, Blood 3.5 mmol/L (3.5-5.5); Total Protein, Blood 6.8 g/dL (6.4-8.2)
[2023-09-17 03:53] VITALS: BP 158/72
--- NOTE | 2023-09-17 04:30 | NUR ---
SHIFT SUMMARY PT A&O X4, COOPERATIVE WITH CARE PROVIDED. PT CONTINENT/INCONINENT. USING BED GARRETT AND URINAL. PT ID NOT GET OOB THIS SHIT. TELEMETRY: AFIB 90S. PT NPO AWAITING POSSIBLE SURGERY TODAY. BED KEPT IN LOWST POSITION WITH CALL LIGHT WITHIN REACH. NS INUISING @75. BED KEPT IN LOWEST POSITION WITH CALL LIGHT WIHIN REACH.
[2023-09-17 07:20] VITALS: BP 136/72
--- NOTE | 2023-09-17 17:28 | NUR ---
SHIFT SUMMARY PT AOX4, 2 PERSON ASSIST WITH THE GB AND WC TO THE BATHROOM. PT CANNOT USE THE URINAL OR THE COMMODE DUE TO SPECIFIC CIRCUMSTANCES. MEDICATED FOR PAIN PER THE EMAR. RESPOSITIONED Q2 OR AT THE PT'S REQUEST. [id number] AT THE BS BUT IS LEAVING TOWN TOMORROW. SHE IS CONCERNED ABOUT THE PT'S PLACEMENT POST DISCHARGE, CASE MANAGEMENT WAS TALKING WITH HER TODAY. CALL LIGHT WITHIN REACH, BED IN THE LOWEST POSITION. WILL REPORT TO ONCOMING NURSE.
[2023-09-17 18:16] VITALS: BP 144/72
[2023-09-17 20:23] VITALS: BP 144/84
[2023-09-18] VITALS (12 sets, daily range): BP systolic 104–137; BP diastolic 54–88
--- NOTE | 2023-09-18 04:24 | NUR ---
NOC SHIFT SUMMARY: PT. A&O X4 AT BEGINNING OF SHIFT. WOKE UP THINKING SOMEONE WAS POUNDING ON HIS DOOR. EASILY REORIENTED. PATIENT WOKE UP TWICE ASKING ABOUT HIS SURGERY. NORCO GIVEN ONCE FOR PAIN CONTROL. PODIATRY TO CONSULT TODAY. BED IN LOW POSITION. CALL LIGHT WITHIN REACH.
[2023-09-18 05:22] LABS: Bun/Creatinine Ratio 16.8 (12.0-20.0); Calcium, Blood 8.4 mg/dL (8.5-10.1); Creatinine, Blood 1.01 mg/dL (0.60-1.20); Magnesium, Blood 2.1 mg/dL (1.6-2.4); Potassium, Blood 3.5 mmol/L (3.5-5.5)
[2023-09-18] MEDS ORDERED: CARTIA XT120 M9 PO (08:35)
[2023-09-18] MEDS ORDERED: PRED5 PO (08:35)
[2023-09-18 08:40] LABS: BASOPHILS ABSOLUTE AUTO 0.08 K/mm3 (0.00-0.23); BASOPHILS PERCENT AUTO 1 % (0-2); EOSINOPHILS ABSOLUTE AUTO 0.54 K/mm3 (0.00-0.68); EOSINOPHILS PERCENT AUTO 6 % (0-6); Hematocrit 32.3 % (37.0-53.0); IMMATURE GRAN ABSOLUTE AUTO 0.08 K/mm3 (0.00-0.10); IMMATURE GRAN PERCENT AUTO 1 % (0-1); LYMPHOCYTES ABSOLUTE AUTO 0.77 K/mm3 (0.84-5.20); LYMPHOCYTES PERCENT AUTO 8 % (21-46); MONOCYTES ABSOLUTE AUTO 0.67 K/mm3 (0.16-1.47); MONOCYTES PERCENT AUTO 7 % (4-13); Mean Corpuscular HGB 26.9 pg (26.0-34.0); Mean Corpuscular Volume 87 fL (80-100); Mean Platelet Volume 9.3 fL (9.1-12.4); NEUTROPHILS ABSOLUTE AUTO 7.71 K/mm3 (1.96-9.15); NEUTROPHILS PERCENT AUTO 78 % (41-73); Platelet Count 245 K/mm3 (150-400); RDW Standard Deviation 50.5 fL (35.1-46.3); Red Blood Cell Count 3.72 M/mm3 (4.30-5.90); White Blood Cell Count 9.85 K/mm3 (4.00-11.30)
--- NOTE | 2023-09-18 18:08 | NUR ---
SHIFT SUMMARY PT GEAR CUTTING MACHINE SET UP OPERATOR FOR SURGERY APPROX 1430 AND RETURNED FROM SURGERY AT 1730. TRANSFERRED IN TO BED AND SETTLED. PT REPORTING BACK PAIN AND NEEDING PAIN MEDS WHICH WERE GIVEN. DRESSING INTACT TO R FOOT. DENIES PAIN TO R FOOT AT THIS TIME. NEEDING REPOSITIONING FREQUENTLY THROUGH THE DAY WELL GETTING UP TO TOILET SEVERAL TIMES PRIOR TO GOING TO SURGERY.
--- NOTE | 2023-09-18 20:25 | NUR ---
tHIS COOKIE BREAKER TALKED WITH SON AND DAUGHTER IN LAW. UPDATED THEM ON PROCEDURE DONE TODAY, RT 5TH TOE BIOPSY. DISCUSSED FOOD CONSULTANT NOTE. THEY ARE REQUESTING A CALL FROM DR. BAEZ FOR AN UPDATE. NUMBER LEFT IN ROOM ON WHITE BOARD.
[2023-09-19 02:08] VITALS: BP 138/67
--- NOTE | 2023-09-19 06:28 | NUR ---
NOC SHIFT SUMMARY: UP WITH 2 ASSIST AND WC TO BATHROOM. CALLS APPROPRIATELY. NORCO GIVEN FOR PAIN CONTROL. SOME CONFUSION DURING NIGHT. BONE BIOPSY DONE TO RIGHT 5TH METATARSAL. [id number] WOULD LIKE A CALL TODAY FROM THE PHYSICIAN TO DISCUSS PROCEDURE AND CARE. CALL LIGHT WITHIN REACH. BED IN LOW POSITION.
[2023-09-19 07:42] VITALS: BP 100/48
[2023-09-19 17:22] VITALS: BP 112/66
--- NOTE | 2023-09-19 18:26 | NUR ---
SHIFT SUMMARY PATIENT IS ALERT AND ORIENTED. PATIENT HAS HAD NO ACUTE EVENTS THIS SHIFT. VITAL SIGNS REVIEWED. PATIENT HAS DISCHARGE PAPERWORK. PATIENT IS PLANNING ON DISCHARGING TO SNF TOMORROW MORNING. COVID TEST IS COMPLETE. PATIENT HAS NOT COMPLAINED OF SOB, NAUSEA OR VOMITTING. PATIENT HAS COMPAINED OF PAIN AND MEDICATED PER EMAR. BED IN LOCKED AND LOWEST POSITION. CALL LIGHT IN PLACE. WILL MONITOR UNTIL SHIFT CHANGE.
[2023-09-19 19:37] VITALS: BP 133/82
[2023-09-20 03:17] VITALS: BP 123/71
--- NOTE | 2023-09-20 04:20 | NUR ---
SHIFT SUMMARY (CHIQUITA) IS ALERT AND FULLY ORIENTED, BUT SEEMS TO HAVE UNCLEAR THOUGHT PROCESS, AND SOME MEMORY ISSUES. NO COMPLAINTS TONIGHT, NO ACUTE EVENTS, NO CHANGES IN CONDITION NOTED PT IS TO BE DISCHARGED TO [facility] IN THE AM. PT RESTING IN BE AT A LOW POSITION WITH THE CALL LIGHT IN REACH.
[2023-09-20 07:45] VITALS: BP 134/86
--- NOTE | 2023-09-20 08:34 | NUR ---
pt laying in bed watching tv, a/ox3, forgetful at times and seems a bit anxious about his urinary device, and need to fully explain it, lungs are clear t/o, on r/a, resp even and unlabored, no cough noted, hrirr, tele in place running afib per monitor, see strip, trace edema noted to b/l le, right foot wrapped in dressing with chong wrap no drainage noted, cap refill <4, sec, vs stable, afebrile, iv site is clear and patent, btx4, abd flat soft nontender, voids with his implanted device, skin c/w/d, except right foot as noted, amelie, one person assist, junie, call light in reach.
[2023-09-20 11:18] LABS: SARS-Cov-2 (COVID-19) PCR, MMC NEGATIVE (NEGATIVE)
--- NOTE | 2023-09-20 11:24 | NUR ---
pt will be transfered to snf today around 1230, he is informed and attempting to call report at this time.
--- NOTE | 2023-09-20 13:15 | NUR ---
pt transport here to take him to [facility], piv was removed intact, report was called, has all his belongings. left via wheelchair with transport.
== END 2023-09-20 13:15 | disposition hospice, inpatient (51) ==
LOC: MEDS 16:39 → EDPENDDIS 09-19 16:51 → ENPENDDIS 09-19 16:51 → MEDS 09-20 13:15
PROVIDERS: Internal Medicine; Podiatrist Foot & Ankle Surgery; ADMIT Internal Medicine
PROC: 0QBN0ZX Excision of Right Metatarsal, Open Approach, Diagnostic (ICD-10-PCS; principal; 2023-09-18 15:30)
DX: M86.9 Osteomyelitis, unspecified (principal); I10 Essential (primary) hypertension; J44.9 Chronic obstructive pulmonary disease, unspecified; E87.6 Hypokalemia; I48.20 Chronic atrial fibrillation, unspecified; L97.519 Non-pressure chronic ulcer of other part of right foot with unspecified severity
CPT/HCPCS: 36415; 80048; 80053; 83735; 83880; 85025; 85610; 85651; 86140; 87071; 87075; 87077; 87147; 87186; 87205; 88307; 93971; 97110; 97116; 97162; 97166; 97530; A9270; G0378; G0379; J2001; J2704; J7030; U0002

== ENCOUNTER 2023-10-29 16:12 | Emergency (ER) | payer MEDICARE, BC ==
[~2023-10-29] VITALS: Ht 175.3 cm; Wt 85.3 kg
[~2023-10-29 16:12] MED LIST changes: +CARTIA XT120 M9 PO; -CATAPRES0.1 MG PO; -HYDROCODONE-AC1 EA19 PO; -K-TAB ER20 ME1 PO; +PRED5 PO; -SOAANZ20 M3 PO; -XARELTO20 M1 PO; -ZANAFLEX413 PO
[2023-10-29 17:58] LABS: BASOPHILS ABSOLUTE AUTO 0.04 K/mm3 (0.00-0.23); BASOPHILS PERCENT AUTO 0 % (0-2); EOSINOPHILS ABSOLUTE AUTO 0.22 K/mm3 (0.00-0.68); EOSINOPHILS PERCENT AUTO 2 % (0-6); Hematocrit 30.2 % (37.0-53.0); Hemoglobin 9.3 g/dL (13.5-17.5); IMMATURE GRAN ABSOLUTE AUTO 0.05 K/mm3 (0.00-0.10); IMMATURE GRAN PERCENT AUTO 1 % (0-1); LYMPHOCYTES ABSOLUTE AUTO 0.68 K/mm3 (0.84-5.20); LYMPHOCYTES PERCENT AUTO 7 % (21-46); MONOCYTES ABSOLUTE AUTO 0.97 K/mm3 (0.16-1.47); MONOCYTES PERCENT AUTO 9 % (4-13); Mean Corpuscular HGB 25.9 pg (26.0-34.0); Mean Corpuscular HGB Conc 30.8 g/dL (31.5-36.5); Mean Corpuscular Volume 84 fL (80-100); Mean Platelet Volume 9.3 fL (9.1-12.4); NEUTROPHILS ABSOLUTE AUTO 8.58 K/mm3 (1.96-9.15); NEUTROPHILS PERCENT AUTO 81 % (41-73); Platelet Count 347 K/mm3 (150-400); RDW Coefficient Variation 17.3 % (11.7-14.2); RDW Standard Deviation 52.3 fL (35.1-46.3); Red Blood Cell Count 3.59 M/mm3 (4.30-5.90); White Blood Cell Count 10.54 K/mm3 (4.00-11.30)
[2023-10-29 18:43] LABS: Albumin, Blood 2.3 g/dL (3.4-5.0); Albumin/Globulin Ratio 0.4 (0.8-1.8); Bilirubin, Total 0.6 mg/dL (0.1-1.0); Bun/Creatinine Ratio 16.5 (12.0-20.0); Calcium, Blood 9.2 mg/dL (8.5-10.1); Creatinine, Blood 1.21 mg/dL (0.60-1.20); Globulin, Blood 5.4 g/dL (2.2-4.0); Potassium, Blood 3.3 mmol/L (3.5-5.5); Thyroid Stimulating Hormone 3.1 uIU/mL (0.360-4.800); Total Protein, Blood 7.7 g/dL (6.4-8.2)
[2023-10-29] MEDS ORDERED: Miralax17 GM PO (20:21)
[2023-10-29] MEDS ORDERED: HYDROCODONE-AC1 EA10 PO (20:23)
[2023-10-29] MEDS ORDERED: Kristalose20 GM PO (20:23)
[2023-10-29 23:15] VITALS: BP 131/68
[2023-10-30] MEDS ORDERED: CATAPRES0.1 MG PO (11:02)
[2023-10-30] MEDS ORDERED: ZANAFLEX413 PO (11:05)
[2023-10-30] MEDS ORDERED: SYNTHROID25 M12 PO (11:05)
[2023-10-30] MEDS ORDERED: XARELTO20 M1 PO (11:06)
[2023-10-30] MEDS ORDERED: POTA10T PO (11:07)
[2023-10-30] MEDS ORDERED: SOAANZ20 M3 PO (11:08)
[2023-10-30] MEDS ORDERED: Acetaminophen325 M1 PO (11:09)
[2023-10-30] MEDS ORDERED: BISA10S PR (11:10)
[2023-10-30] MEDS ORDERED: HYDHCL25 PO (11:12)
[2023-10-30] MEDS ORDERED: DULCOLAX400 MG/5 M PO (11:13)
[2023-10-30] MEDS ORDERED: HYDROCODONE-AC1 EA19 PO (11:14)
[2023-10-30] MEDS ORDERED: ONDA4 PO (11:16)
[2023-10-30] MEDS ORDERED: VOLTAREN ARTHRI20 GM TOP (11:17)
== END 2023-10-29 23:30 | disposition home or self-care (01) ==
LOC: ER 16:12
PROVIDERS: Emergency Medicine
DX: R10.9 Unspecified abdominal pain (principal); Z88.8 Allergy status to other drugs, medicaments and biological substances; Z91.048 Other nonmedicinal substance allergy status; Z79.899 Other long term (current) drug therapy; Z79.01 Long term (current) use of anticoagulants
CPT/HCPCS: 74177; 80053; 84443; 85025; 99284-25; A9270; Q9967